=== PATIENT | female | born 1985 | race Two or more races ===

== ENCOUNTER 2016-04-08 11:57 | Emergency (ER) | payer MEDICAID, OTHER ==
[2016-04-08 12:31] VITALS: BP 102/76; PULSE 104; RESP 16; TEMP 98.5; O2SAT 95
--- NOTE | 2016-04-08 13:07 | UCPHY ---
H & P Time Seen by Provider: 04/08/16 12:52 Patient Type: New HPI/ROS: This patient presents with a 2-3 day history of cough and malaise. She admits to sore throat, nasal congestion and subjective fever but denies earache, chest pain or shortness of breath. REVIEW OF SYSTEMS: Constitutional: Malaise, subjective fever Eyes: No complaints ENT: Sore throat, nasal congestion, no ear pain. Respiratory: Cough, mild dyspnea on exertion Cardiac: No chest pain Gastrointestinal: Not addressed Genitourinary: Not addressed Musculoskeletal: Myalgias Skin: No rash Neurological: Headache Smoking Status: Unknown if ever smoked Physical Exam: GENERAL: Well-appearing, well-nourished and in no acute distress. HEAD: Atraumatic, normocephalic. EYES: , sclera anicteric, conjunctiva are normal. ENT: TMs normal, nares patent, oropharynx clear without exudates. Moist mucous membranes. NECK: Normal range of motion, supple without lymphadenopathy or JVD. No tenderness LUNGS: Breath sounds clear to auscultation bilaterally and equal. No wheezes rales or rhonchi. HEART: Regular rate and rhythm EXTREMITIES: Normal range of motion, NEUROLOGICAL: Cranial nerves II through XII grossly intact. Normal speech, normal gait. PSYCH: Normal mood, normal affect. SKIN: Warm, dry, normal turgor, no visible rashes or lesions. Constitutional: Initial Vital Signs Temperature (C) 36.9 C 04/08/16 12:10 Heart Rate 104 H 04/08/16 12:10 Respiratory Rate 16 04/08/16 12:10 Blood Pressure 102/76 04/08/16 12:10 O2 Sat (%) 95 04/08/16 12:10 O2 Delivery Mode Room Air Allergies/Adverse Reactions: No Known Allergies Allergy (Verified 04/08/16 12:25) Home Medications: Medication Instructions Recorded NK [No Known Home Meds] 04/08/16 Medical Decision Making Differential Diagnosis: I believe that this patient has a viral syndrome and that antibiotics are not indicated. Departure - Departure Disposition: Home, Routine, Self-Care Clinical Impression: Acute bronchitis Qualifiers: Bronchitis organism: unspecified organism Qualifier Code: (J20.9) Acute bronchitis, unspecified Condition: Good Instructions: Acute Bronchitis (ED), Viral Syndrome (ED) Additional Instructions: If your symptoms have not resolved in 7 days you should be re-evaluated. Cause for concern would be fever greater than 101 degrees, sharp chest pain or increasing shortness of breath . Keep herself well hydrated but do not force herself to eat. Activity as tolerated. Adult Pain & Fever Control: We recommend Acetaminophen (Tylenol) and Ibuprofen (Motrin, Advil) for pain and fever control. When fever is high or pain severe, both drugs can be used at the same time, but at different intervals. Please note the time differences. Your dose is: Acetaminophen [650]mg every 4 to 6 hours ibuprofen [600]mg every [6] hours with food OR naproxen Sodium (Aleve) [440]mg every 12 hours. Note: do not take Acetaminophen with Hydrocodone (Vicodin, Lortab) or Oxycodone (Percocet). These medications also contain Acetaminophen. No more than 3000 mg of Acetaminophen should be taken in 24 hours (for an adult) . The maximal dose of ibuprofen that it is safe in a 24-hour period is 2400 mg. You may take 400 mg every 4 hours, 600 mg every 6 hours or 800 mg every 8 hours safely. - PQRS PQRS Measurement: Not applicable
== END 2016-04-08 13:10 | disposition home or self-care (01) ==
LOC: CED 11:57
DX: J20.9 Acute bronchitis, unspecified (principal)
CPT/HCPCS: 99203-PO; G0463-PO